=== PATIENT | male | born 1975 | race Caucasian/White ===

== ENCOUNTER 2018-05-20 14:40 | Emergency (ER) | payer OTHER, SELFPAY ==
[2018-05-20 14:41] VITALS: BP 134/86; PULSE 65; RESP 16; TEMP 36.7; O2SAT 98; BMI 23.9
--- NOTE | 2018-05-20 15:06 | ED.VISSUMM ---
- ER Visit Summary Date of Service: 05/20/18 Chief Complaint: Piece of wood in the right arm History of Present Illness: The patient is a [address] Arzate. He is right-hand dominant. He reports that today he was sawing a piece of wood when a piece flipped back off of the saw and injured his right arm. He reports he has an aching pain that was severe at worst and is mild currently. Is worsened by movement relieved by rest. He denies any paresthesias distally. He is unsure when his last tetanus shot was. Physical Examination: Vitals: Stable. Afebrile. General: Well-nourished and well-developed. Head: Normocephalic atraumatic. Neck: Supple, no lymphadenopathy. No JVD. Nontender. Cardiovascular: Regular rate and rhythm. No murmurs. Respiratory: No respiratory distress. Clear to auscultation bilaterally. Abdominal: Soft, nontender, nondistended, normal bowel sounds. No guarding, rebound, or peritoneal signs. Back: Nontender. Extremities: There is an approximately 1 cm laceration on the dorsum of his right forearm approximately 3 cm distal to his elbow. There is tenting of the skin approximately 3 cm proximal to his elbow on the medial side of his skin from this foreign body. He is neurovascular intact distally. Skin: Normal color, no rash. Neurologic: Alert and oriented ?3. Cranial nerves II through XII are intact. Normal strength and sensation. Psych: Normal affect. Test Results: X-ray shows what appears to be approximately 11 cm foreign body in the soft tissues anteriorly over the antecubital fossa. Emergency Department Course and Treatment: Patient had an IV placed. He was given Ancef and morphine IV. He was given Adacel IM. Treatment Plan: Patient was discussed with Dr. Pan Zavala who asked that I speak with a hand surgeon. Patient was discussed with Dr. Avelar from the [facility] who is accepted him in transfer. The patient was placed in a long-arm splint prior to transfer. Disposition: Transferred to [facility] in stable condition. Impression: 1. Foreign body right arm. 2. Long-arm splint, fabricated. This note was generated with [employer] software. It may contain incorrect words, spelling, and punctuation that were not noted in review of the chart prior to signing ED Disposition - Plan for ED Patient: Disposition: [facility] Chief Complaint: Foreign Body Referrals: Sandeep Serrano [Primary Care Provider] -
--- NOTE | 2018-05-20 15:15 | ED.DCSUM_ITS ---
- ER Visit Summary Date of Service: 05/20/18 Chief Complaint: Piece of wood in the right arm History of Present Illness: The patient is a [address] Arzate. He is right-hand dominant. He reports that today he was sawing a piece of wood when a piece flipped back off of the saw and injured his right arm. He reports he has an aching pain that was severe at worst and is mild currently. Is worsened by movement relieved by rest. He denies any paresthesias distally. He is unsure when his last tetanus shot was. Physical Examination: Vitals: Stable. Afebrile. General: Well-nourished and well-developed. Head: Normocephalic atraumatic. Neck: Supple, no lymphadenopathy. No JVD. Nontender. Cardiovascular: Regular rate and rhythm. No murmurs. Respiratory: No respiratory distress. Clear to auscultation bilaterally. Abdominal: Soft, nontender, nondistended, normal bowel sounds. No guarding, rebound, or peritoneal signs. Back: Nontender. Extremities: There is an approximately 1 cm laceration on the dorsum of his right forearm approximately 3 cm distal to his elbow. There is tenting of the skin approximately 3 cm proximal to his elbow on the medial side of his skin from this foreign body. He is neurovascular intact distally. Skin: Normal color, no rash. Neurologic: Alert and oriented ?3. Cranial nerves II through XII are intact. Normal strength and sensation. Psych: Normal affect. Test Results: X-ray shows what appears to be approximately 11 cm foreign body in the soft tissues anteriorly over the antecubital fossa. Emergency Department Course and Treatment: Patient had an IV placed. He was given Ancef and morphine IV. He was given Adacel IM. Treatment Plan: Patient was discussed with Dr. Pan Zavala who asked that I speak with a hand surgeon. Patient was discussed with Dr. Avelar from the [facility] who is accepted him in transfer. The patient was placed in a long-arm splint prior to transfer. Disposition: Transferred to [facility] in stable condition. Impression: 1. Foreign body right arm. 2. Long-arm splint, fabricated. This note was generated with [employer] software. It may contain incorrect words, spelling, and punctuation that were not noted in review of the chart prior to signing ED Disposition - Plan for ED Patient: Disposition: [facility] Chief Complaint: Foreign Body Referrals: Sandeep Serrano [Primary Care Provider] -
--- NOTE | 2018-05-20 15:20 | RAD_ITS ---
STUDY: X-RAY - RIGHT ELBOW REASON FOR EXAM: Male, 42 years old. Possible radiopaque foreign body. TECHNIQUE: Single lateral view(s) of the elbow. COMPARISON: None. FINDINGS: Normal visualized humerus, radius and ulna. Normal radiocapitellar and ulnotrochlear articulations. No radiopaque foreign body is seen. Small amount of air is seen within the soft tissues most likely secondary to the instrumentation for foreign body removal. Joint effusion. RAD/Elbow 2 Views IMPRESSION: No radiopaque foreign body is seen. Joint effusion. Postoperative soft tissue changes. Electronically Signed: Mart Barnes MD at 15:51 EDT Tel [phone], Service support ,
[2018-05-20] MEDS: Morphine 4 MG/ML Syringe IV (15:30)
[2018-05-20] MEDS: Diphth,Pertuss(Acell),Tet Vac 0.5 ML Vial IM (15:30)
[2018-05-20] MEDS: Cefazolin 1 GM/50 ML BAG IV (16:23)
[2018-05-20 16:53] VITALS: BP 130/86; PULSE 68; RESP 16; TEMP 36.9; O2SAT 98
--- NOTE | 2018-05-20 16:58 | ED.RN ---
PT LEFT WITHOUT TRANFER PACKET. FAXED TO [facility]
== END 2018-05-20 16:50 | disposition short-term general hospital (02) ==
PROVIDERS: Emergency Provider Emergency Medicine
DX: S51.041A Puncture wound with foreign body of right elbow, initial encounter (principal); W45.8XXA Other foreign body or object entering through skin, initial encounter; W27.0XXA Contact with workbench tool, initial encounter; Y93.9 Activity, unspecified; Y92.9 Unspecified place or not applicable; Y99.9 Unspecified external cause status; Z23 Encounter for immunization
CPT/HCPCS: 29105; 73070; 90715; 96365; 96375; 99284; J7030; A4216